=== PATIENT | female | born 1935 | race Caucasian/White ===

== ENCOUNTER 2018-02-26 21:04 | Inpatient (IN) | payer MEDICARE ==
[~2018-02-26] VITALS: Ht 165.1 cm; Wt 46.0 kg
[2018-02-26 21:44] LABS: PLATELET COUNT 471 x10^3mcL (130-400); RED CELL DISTRIBUTION WIDTH 16.1 % (11.5-14.5)
[2018-02-26 21:53] LABS: BAND NEUTROPHIL 3 % (0-10); BASOPHIL 0 % (0-2); MONOCYTE 5 % (0-7); SEGMENTED NEUTROPHILS 80 % (37-75); rbc morphology (normal/abnorm) NORMAL (NORMAL)
[2018-02-26 21:58] LABS: CALCIUM 8.7 mg/dL (8.5-10.1); CARBON DIOXIDE 17.9 mmol/L (21-32); CHLORIDE SERUM 97 mmol/L (98-107); CREATININE SERUM 0.8 mg/dL (0.6-1.0); GLUCOSE SERUM 144 mg/dL (74-106); POTASSIUM SERUM 3.6 mmol/L (3.5-5.1); SODIUM SERUM 130 mmol/L (136-145)
[2018-02-26 22:04] LABS: ALKALINE PHOSPHATASE 105 U/L (46-116); ALT/SGPT 20 U/L (14-59); AST/SGOT 20 U/L (15-37); BILIRUBIN TOTAL 0.8 mg/dL (0.20-1.00); MAGNESIUM 1.5 mg/dL (1.8-2.4); TOTAL PROTEIN, SERUM 7.1 g/dL (6.4-8.2)
[2018-02-26 22:05] LABS: ALBUMIN 2.4 g/dL (3.4-5.0)
[2018-02-26 23:51] LABS: microscopic required? YES; urine erythrocyte NEGATIVE (NEGATIVE)
[2018-02-27] VITALS (8 sets, daily range): BP systolic 100–133; BP diastolic 54–70; Ht 165.1 cm; Wt 46.0 kg
[2018-02-27 01:45] LABS: FREE T4 1.32 ng/dL (0.76-1.46); FREE THYROXINE INDEX 2.6 ug/dL (1.4-4.5); T4(THYROXINE) 6.4 ug/dL (4.7-13.3)
[2018-02-27 01:47] LABS: CHOLESTEROL/HDL RATIO 3.7; PHOSPHOROUS 3.1 mg/dL (2.5-4.9)
[2018-02-27 01:48] LABS: AMPHETAMINE QUAL UR NONE DETECTED (See below)
[2018-02-27 02:13] LABS: T3 TOTAL 0.66 ng/mL
[2018-02-27 05:42] LABS: PLATELET COUNT 436 x10^3mcL (130-400)
[2018-02-27 05:55] LABS: CALCIUM 7.8 mg/dL (8.5-10.1); CARBON DIOXIDE 20.5 mmol/L (21-32); CHLORIDE SERUM 105 mmol/L (98-107); CREATININE SERUM 0.6 mg/dL (0.6-1.0); GLUCOSE SERUM 111 mg/dL (74-106); MAGNESIUM 2.6 mg/dL (1.8-2.4); PHOSPHOROUS 3.5 mg/dL (2.5-4.9); POTASSIUM SERUM 3.3 mmol/L (3.5-5.1); SODIUM SERUM 136 mmol/L (136-145)
[2018-02-27 06:16] LABS: BAND NEUTROPHIL 5 % (0-10); SEGMENTED NEUTROPHILS 85 % (37-75)
[2018-02-27 06:17] LABS: PLATELET MORPHOLOGY PLATELETS NORMAL; rbc morphology (normal/abnorm) NORMAL (NORMAL)
== END 2018-02-27 21:45 | disposition short-term general hospital (02) | DRG 871 ==
LOC: ED 21:04 → IC 02-27 00:29
PROVIDERS: Emergency Medicine; ADMIT Family Medicine
DX: A41.9 Sepsis, unspecified organism (principal); J18.9 Pneumonia, unspecified organism; E43 Unspecified severe protein-calorie malnutrition; I47.1 Supraventricular tachycardia; Z68.1 Body mass index [BMI] 19.9 or less, adult; E87.1 Hypo-osmolality and hyponatremia; E83.42 Hypomagnesemia; R73.03 Prediabetes; M25.552 Pain in left hip; J44.9 Chronic obstructive pulmonary disease, unspecified; I10 Essential (primary) hypertension; Z91.81 History of falling; I25.2 Old myocardial infarction; Z92.3 Personal history of irradiation; F17.210 Nicotine dependence, cigarettes, uncomplicated; Z85.841 Personal history of malignant neoplasm of brain; Z85.820 Personal history of malignant melanoma of skin; Z86.73 Personal history of transient ischemic attack (TIA), and cerebral infarction without residual deficits; Z85.110 Personal history of malignant carcinoid tumor of bronchus and lung
CPT/HCPCS: 83880; 84439; 94150; 97112-GP; J2543; J2920; J3370; J3475; J3480; J3490; J7030; J7050; J7620; J7626; Q0092